=== PATIENT | female | born 1960 | race Caucasian/White ===

== ENCOUNTER 2019-04-24 01:18 | Emergency (ER) | payer BC ==
[2019-04-24] MEDS ORDERED: Sodium Chloride 0.9% 2.5 ML Syringe FLUSH PRN (01:29)
[2019-04-24] MEDS ORDERED: Sodium Chloride 0.9% 10 ML Syringe FLUSH PRN (01:29)
[2019-04-24] MEDS ORDERED: Sodium Chloride 0.9% 1,000 ML IV ONE (01:29)
--- NOTE | 2019-04-24 01:34 | EDM.PDOC ---
ED HPI GENERAL MEDICAL PROBLEM - General Chief Complaint: General Stated Complaint: FLU SYMPTOMS Time Seen by Provider: 04/24/19 01:20 - History of Present Illness INITIAL COMMENTS - FREE TEXT/NARRATIVE: HISTORY AND PHYSICAL: History of present illness: The patient is a 58-year-old female with a history of a cholecystectomy but no other GI or abdominal surgical history who presents with EMS and her with complaints of generalized weakness dry heaves and diarrhea. According to the the symptoms started 2-2-1/2 days ago initially with nausea and some dry heaves and just feeling poorly and then progressed to having watery diarrhea. According to the for the last 2 days she has had multiple episodes of watery diarrhea and the dry heaves but no fevers chills chest pain or shortness of breath. She has not eaten any food in the last 2 days and has only had 2 bottles of water in the last 2 days. She is unsure how many times she urinated today and according to she has not had any falls. She denies head neck or back pain and has no focal extremity weakness or numbness. said he witnessed that she had generalized weakness and needed assistance to get around and seemed very low energy and lethargic is why he called EMS. here does not tell me about the 2-1/2 days of symptoms and says that it all started this morning and she denies any complaints of any pain here and just says that she feels weak all over. When I'm examining her abdomen she does state that she thinks she has some upper abdominal pain but she says that that has not been consistent. According to she has not had a fever at home and he has not noticed any focal weakness or neurosensory changes nor has she complained that. She has also not complained of any head neck or back pain Review of systems: As per history of present illness and below otherwise all systems reviewed and negative. Past medical history: As per history of present illness and as reviewed below otherwise noncontributory. Surgical history: As per history of present illness and as reviewed below otherwise noncontributory. Social history: No reported history of drug or alcohol abuse. Family history: As per history of present illness and as reviewed below otherwise noncontributory. Physical exam: General: Well-developed well-nourished female who is overweight and nontoxic and answering questions but very low energy. Vital signs are noted by me HEENT: Atraumatic, normocephalic, pupils reactive, negative for conjunctival pallor or scleral icterus, mucous membranes tacky, throat clear, neck supple, nontender, trachea midline. Patient's overall appearance is somewhat pale Lungs: Clear to auscultation, breath sounds equal bilaterally, chest nontender. No wheezing stridor or work of breathing Heart: S1S2, regular in rhythm no overt murmurs, negative for clicks, rubs, or JVD. Abdomen: Soft, nondistended, bowel sounds are very hypoactive and there is tympany on percussion of the upper abdomen. There is diffuse upper abdominal tenderness without rebound or guarding. Negative for masses or hepatosplenomegaly. Negative for costovertebral tenderness. Pelvis: Stable nontender. Genitourinary: Deferred. Rectal: Deferred. Extremities: Atraumatic, negative for cords or calf pain. Neurovascular unremarkable. No pedal edema or leg asymmetry Neuro: Awake, alert, oriented patient is very slow with answering and with all movements but is cooperative. Cranial nerves II through XII unremarkable. Cerebellum unremarkable. Motor is a 4/5 throughout with very slow effort but no localizing weakness and sensory unremarkable throughout. Exam nonfocal. Dorsi and plantar flexion is intact 4/5 inclusive of the great toe Diagnostics: EKG 2 CBC CMP amylase lipase lactic acid UA with reflex troponin chest x-ray CT scan of the head abdomen and pelvis ammonia level hepatitis panel PTT Therapeutics: IV O2 monitor IV fluids The booking supervisor in [place] would like heparin per protocol for an STEMI Nitropaste Lopressor and aspirin to be given --the patient was given aspirin per EMS 0232: Case was discussed with Dr. Graf the booking supervisor at [facility] in [place] and I have sent him the EKGs which she has reviewed. He says that at this point because the patient is pain-free the event likely happened a day or 2 ago and we would use medical management and do a heart catheter when we can get her transferred to [place]. He agrees with completing the workup of her abdominal symptoms and if that is negative to give her Nitropaste heparin Lopressor and aspirin. He asked to be notified of any changes and updates on her transfer. He feels that at this point she does not merit flight as he will not be doing an emergent catheter this evening and will likely do it later this morning and feels that EMS transfer is appropriate. I will discuss my findings and these conversations with the and patient. 0353: Case was discussed with Dr. Lea in the ER and he is aware of my concerns with respect to the patient's presenting symptoms and our findings. He is aware of the CT scan and the lab tests. He accepts the patient for transfer. He is also been made aware that we will not be able to get transportation until about 9:00 in the morning. He will pass on this information to the next ED doc in the morning And they will anticipate the patient's arrival 0410: the patient is aware of more labs that need to be drawn including a PTT and ammonia level and a hepatitis panel. She is aware of the CT scan findings with the ascites fluid and that I am not quite sure where this is originating from. She has no longer having any dry heaves nausea or vomiting here in the ED and she has not had a bowel movement or diarrhea since arriving here. Her overall color looks much better and she is feeling improved. She is improved with her interaction with staff and me from arrival as initially she was laying in the bed barely opening her eyes and answering questions very softly and briefly and now she is more chatty interactive and talkative and more alert. She is aware that we cannot get transportation until the morning. She denies any recent history of bleeding in the stools black or tarry stools bleeding or urine nosebleeds, bleeding or easy bruisability. We will continue to monitor and care for this patient and tell transfer in the morning. Critical care time excluding procedures:31min Impression: Non-STEMI AR Vomiting and diarrhea, generalized weakness and malaise; abdominal ascites and omental trending etiology unclear Definitive disposition and diagnosis as appropriate pending reevaluation and review of above. - Related Data Allergies Allergy/AdvReac Type Severity Reaction Status Date / Time latex Allergy Hives Verified 04/24/19 01:27 Home Meds: Home Meds . [No Known Home Meds] 04/24/19 [History] ED ROS GENERAL - Review of Systems Review Of Systems: ROS reveals no pertinent complaints other than HPI. ED EXAM, GENERAL - Physical Exam Exam: See Below (See dictation) Course - Vital Signs Last Recorded V/S: Last Vital Signs Temp 35.8 C 04/24/19 01:18 Pulse 97 04/24/19 01:36 Resp 18 04/24/19 01:36 BP 154/96 H 04/24/19 01:36 Pulse Ox 96 04/24/19 01:36 - Orders/Labs/Meds Orders: Active Orders 24 hr Category Date Time Status Cardiac Monitoring [RC] . DIRECTED Care 04/24/19 01:28 Active Communication Order [RC] STAT Care 04/24/19 01:34 Active EKG Documentation Completion [RC] STAT Care 04/24/19 01:28 Active EKG Documentation Completion [RC] STAT Care 04/24/19 02:16 Active Oxygen Therapy, ED [RC] ASDIRECTED Care 04/24/19 01:28 Active Pulse Oximetry [RC] ASDIRECTED Care 04/24/19 01:28 Active AMMONIA VENOUS [CHEM] Stat Lab 04/24/19 04:02 Ordered HEPATITIS PANEL (4) [REF] Stat Lab 04/24/19 04:03 Ordered PTT,PARTIAL THROMBOPLSTIN TIME [COAG] Stat Lab 04/24/19 04:13 Ordered Heparin Sod,Pork In 0.45% Nacl [Heparin-1/2Ns 25,000 Med 04/24/19 04:15 Ordered Units/500] 25,000 unit in 500 ml IV TITRATE Heparin Sodium Med 04/24/19 04:10 Once 4,600 units IVPUSH ONETIME ONE Metoprolol Tartrate [Lopressor] Med 04/24/19 04:13 Once 5 mg IVPUSH ONETIME ONE Nitroglycerin [Nitro-Bid 2%] Med 04/24/19 04:13 Once 1 gm TOP ONETIME ONE Sodium Chloride 0.9% [Normal Saline] 1,000 ml Med 04/24/19 03:15 Active IV ASDIRECTED Sodium Chloride 0.9% [Saline Flush] Med 04/24/19 01:29 Active 10 ml FLUSH ASDIRECTED PRN Sodium Chloride 0.9% [Saline Flush] Med 04/24/19 01:29 Active 2.5 ml FLUSH ASDIRECTED PRN Saline Lock Insert [OM.PC] Stat Oth 04/24/19 01:28 Ordered Medication Orders Heparin Sodium (Porcine) (Heparin Sodium) 4,600 units IVPUSH ONETIME ONE Stop: 04/24/19 04:11 Sodium Chloride (Normal Saline) 1,000 mls @ 125 mls/hr IV ASDIRECTED SARAH Last Admin: 04/24/19 03:05 Dose: 125 mls/hr Heparin Sodium/Sodium Chloride (Heparin-1/2ns 25,000 Units/500) 25,000 unit in 500 mls @ 18.507 mls/hr IV TITRATE SARAH; Protocol Metoprolol Tartrate (Lopressor) 5 mg IVPUSH ONETIME ONE Stop: 04/24/19 04:14 Sodium Chloride (Saline Flush) 10 ml FLUSH ASDIRECTED PRN PRN Reason: Keep Vein Open Sodium Chloride (Saline Flush) 2.5 ml FLUSH ASDIRECTED PRN PRN Reason: Keep Vein Open Labs: Laboratory Tests 04/24/19 04/24/19 04/24/19 Range/Units 01:19 01:19 01:19 WBC 11.70 H (4.0-11.0) K/uL RBC 5.43 (4.30-5.90) M/uL Hgb 14.7 (12.0-16.0) g/dL Hct 44.0 (36.0-46.0) % MCV 81.0 (80.0-98.0) fL MCH 27.1 (27.0-32.0) pg MCHC 33.4 (31.0-37.0) g/dL RDW Std Deviation 40.4 (28.0-62.0) fl RDW Coeff of Sindy 14 (11.0-15.0) % Plt Count 168 (150-400) K/uL MPV 9.90 (7.40-12.00) fL Neut % (Auto) 79.7 (48.0-80.0) % Lymph % (Auto) 7.9 L (16.0-40.0) % [place] % (Auto) 12.1 (0.0-15.0) % Eos % (Auto) 0.1 (0.0-7.0) % Baso % (Auto) 0.2 (0.0-1.5) % Neut # (Auto) 9.3 H (1.4-5.7) K/uL Lymph # (Auto) 0.9 (0.6-2.4) K/uL [place] # (Auto) 1.4 H (0.0-0.8) K/uL Eos # (Auto) 0.0 (0.0-0.7) K/uL Baso # (Auto) 0.0 (0.0-0.1) K/uL Nucleated RBC % 0.0 /100WBC Nucleated RBCs # 0 K/uL Lactate 1.4 (0.20-2.00) mmol/L Sodium 138 (136-145) mmol/L Potassium 3.5 (3.5-5.1) mmol/L Chloride 101 (98-107) mmol/L Carbon Dioxide 22.9 (21.0-32.0) mmol/L BUN 10 (7.0-18.0) mg/dL Creatinine 0.8 (0.6-1.0) mg/dL Est Cr Clr Drug Dosing TNP Estimated GFR (MDRD) > 60.0 ml/min Glucose 179 H (74-106) mg/dL Calcium 8.8 (8.5-10.1) mg/dL Total Bilirubin 1.5 H (0.2-1.0) mg/dL AST 112 H (15-37) IU/L ALT 50 (14-63) IU/L Alkaline Phosphatase 75 (46-116) U/L Troponin I 21.631 H* (0.000-0.056) ng/mL Total Protein 7.5 (6.4-8.2) g/dL Albumin 3.1 L (3.4-5.0) g/dL Globulin 4.4 H (2.6-4.0) g/dL Albumin/Globulin Ratio 0.7 L (0.9-1.6) Amylase 29 (25-115) U/L Lipase 200 (73-393) U/L Urine Color Urine Appearance Urine pH (5.0-8.0) Ur Specific [place] (1.001-1.035) Urine Protein (NEGATIVE) mg/dL Urine Glucose (UA) (NEGATIVE) mg/dL Urine Ketones (NEGATIVE) mg/dL Urine Occult Blood (NEGATIVE) Urine Nitrite (NEGATIVE) Urine Bilirubin (NEGATIVE) Urine Urobilinogen (<2.0) EU/dL Ur Leukocyte Esterase (NEGATIVE) Urine RBC (0-2/HPF) Urine WBC (0-5/HPF) Ur Epithelial Cells (NONE-FEW) Urine Bacteria (NEGATIVE) Urine Mucus (NONE-MOD) 04/24/19 Range/Units 03:10 WBC (4.0-11.0) K/uL RBC (4.30-5.90) M/uL Hgb (12.0-16.0) g/dL Hct (36.0-46.0) % MCV (80.0-98.0) fL MCH (27.0-32.0) pg MCHC (31.0-37.0) g/dL RDW Std Deviation (28.0-62.0) fl RDW Coeff of Sindy (11.0-15.0) % Plt Count (150-400) K/uL MPV (7.40-12.00) fL Neut % (Auto) (48.0-80.0) % Lymph % (Auto) (16.0-40.0) % [place] % (Auto) (0.0-15.0) % Eos % (Auto) (0.0-7.0) % Baso % (Auto) (0.0-1.5) % Neut # (Auto) (1.4-5.7) K/uL Lymph # (Auto) (0.6-2.4) K/uL [place] # (Auto) (0.0-0.8) K/uL Eos # (Auto) (0.0-0.7) K/uL Baso # (Auto) (0.0-0.1) K/uL Nucleated RBC % /100WBC Nucleated RBCs # K/uL Lactate (0.20-2.00) mmol/L Sodium (136-145) mmol/L Potassium (3.5-5.1) mmol/L Chloride (98-107) mmol/L Carbon Dioxide (21.0-32.0) mmol/L BUN (7.0-18.0) mg/dL Creatinine (0.6-1.0) mg/dL Est Cr Clr Drug Dosing Estimated GFR (MDRD) ml/min Glucose (74-106) mg/dL Calcium (8.5-10.1) mg/dL Total Bilirubin (0.2-1.0) mg/dL AST (15-37) IU/L ALT (14-63) IU/L Alkaline Phosphatase (46-116) U/L Troponin I (0.000-0.056) ng/mL Total Protein (6.4-8.2) g/dL Albumin (3.4-5.0) g/dL Globulin (2.6-4.0) g/dL Albumin/Globulin Ratio (0.9-1.6) Amylase (25-115) U/L Lipase (73-393) U/L Urine Color YELLOW Urine Appearance CLEAR Urine pH 6.5 (5.0-8.0) Ur Specific [place] <= 1.005 (1.001-1.035) Urine Protein TRACE H (NEGATIVE) mg/dL Urine Glucose (UA) NEGATIVE (NEGATIVE) mg/dL Urine Ketones 15 H (NEGATIVE) mg/dL Urine Occult Blood TRACE-INTACT H (NEGATIVE) Urine Nitrite NEGATIVE (NEGATIVE) Urine Bilirubin NEGATIVE (NEGATIVE) Urine Urobilinogen >=8.0 H (<2.0) EU/dL Ur Leukocyte Esterase NEGATIVE (NEGATIVE) Urine RBC NONE SEEN (0-2/HPF) Urine WBC 0-1 (0-5/HPF) Ur Epithelial Cells OCCASIONAL (NONE-FEW) Urine Bacteria FEW (NEGATIVE) Urine Mucus LIGHT (NONE-MOD) Meds: Medications Generic Name Dose Route Start Last Admin Trade Name Freq PRN Reason Stop Dose Admin Heparin Sodium (Porcine) 4,600 units 04/24/19 04:10 Heparin Sodium IVPUSH 04/24/19 04:11 ONETIME ONE Sodium Chloride 1,000 mls @ 125 mls/hr 04/24/19 03:15 04/24/19 03:05 Normal Saline IV 125 mls/hr ASDIRECTED SARAH Administration Heparin Sodium/Sodium Chloride 25,000 unit in 500 mls @ 18.507 mls/hr 04:15 Heparin-1/2ns 25,000 Units/500 IV TITRATE SARAH Protocol 12 UNITS/KG/HR Metoprolol Tartrate 5 mg 04/24/19 04:13 Lopressor IVPUSH 04/24/19 04:14 ONETIME ONE Sodium Chloride 10 ml 04/24/19 01:29 Saline Flush FLUSH ASDIRECTED PRN Keep Vein Open Sodium Chloride 2.5 ml 04/24/19 01:29 Saline Flush FLUSH ASDIRECTED PRN Keep Vein Open Discontinued Medications Generic Name Dose Route Start Last Admin Trade Name Freq PRN Reason Stop Dose Admin Sodium Chloride 1,000 mls @ 999 mls/hr 04/24/19 01:29 04/24/19 01:36 Normal Saline IV 04/24/19 02:29 999 mls/hr STAT ONE Administration Iopamidol 100 ml 04/24/19 02:54 04/24/19 02:54 Isovue Multipack-370 (76%) IVPUSH 04/24/19 02:55 100 ml ONETIME ONE Administration Departure - Departure Time of Disposition: 04:18 Disposition: DC/Tfer to Acute Hospital 02 Condition: Fair Clinical Impression: NSTEMI (non-ST elevated myocardial infarction), Vomiting and diarrhea Ascites Qualifiers: Ascites type: other type Qualified Code(s): R18.8 - Other ascites - Discharge Information Referrals: PCP,None [Primary Care Provider] - Forms: ED Department Discharge - My Orders Last 24 Hours: My Active Orders 04/24/19 01:28 Cardiac Monitoring [RC] . DIRECTED EKG Documentation Completion [RC] STAT Oxygen Therapy, ED [RC] ASDIRECTED Pulse Oximetry [RC] ASDIRECTED Saline Lock Insert [OM.PC] Stat 04/24/19 01:29 Sodium Chloride 0.9% [Saline Flush] 10 ml FLUSH ASDIRECTED PRN Sodium Chloride 0.9% [Saline Flush] 2.5 ml FLUSH ASDIRECTED PRN 04/24/19 01:34 Communication Order [RC] STAT 04/24/19 02:16 EKG Documentation Completion [RC] STAT 04/24/19 03:15 Sodium Chloride 0.9% [Normal Saline] 1,000 ml IV ASDIRECTED 04/24/19 04:02 AMMONIA VENOUS [CHEM] Stat 04/24/19 04:03 HEPATITIS PANEL (4) [REF] Stat 04/24/19 04:10 Heparin Sodium 4,600 units IVPUSH ONETIME ONE 04/24/19 04:13 PTT,PARTIAL THROMBOPLSTIN TIME [COAG] Stat Metoprolol Tartrate [Lopressor] 5 mg IVPUSH ONETIME ONE Nitroglycerin [Nitro-Bid 2%] 1 gm TOP ONETIME ONE 04/24/19 04:15 Heparin Sod,Pork In 0.45% Nacl [Heparin-1/2Ns 25,000 Units/500] 25,000 unit in 500 ml IV TITRATE - Assessment/Plan Last 24 Hours: My Active Orders 04/24/19 01:28 Cardiac Monitoring [RC] . DIRECTED EKG Documentation Completion [RC] STAT Oxygen Therapy, ED [RC] ASDIRECTED Pulse Oximetry [RC] ASDIRECTED Saline Lock Insert [OM.PC] Stat 04/24/19 01:29 Sodium Chloride 0.9% [Saline Flush] 10 ml FLUSH ASDIRECTED PRN Sodium Chloride 0.9% [Saline Flush] 2.5 ml FLUSH ASDIRECTED PRN 04/24/19 01:34 Communication Order [RC] STAT 04/24/19 02:16 EKG Documentation Completion [RC] STAT 04/24/19 03:15 Sodium Chloride 0.9% [Normal Saline] 1,000 ml IV ASDIRECTED 04/24/19 04:02 AMMONIA VENOUS [CHEM] Stat 04/24/19 04:03 HEPATITIS PANEL (4) [REF] Stat 04/24/19 04:10 Heparin Sodium 4,600 units IVPUSH ONETIME ONE 04/24/19 04:13 PTT,PARTIAL THROMBOPLSTIN TIME [COAG] Stat Metoprolol Tartrate [Lopressor] 5 mg IVPUSH ONETIME ONE Nitroglycerin [Nitro-Bid 2%] 1 gm TOP ONETIME ONE 04/24/19 04:15 Heparin Sod,Pork In 0.45% Nacl [Heparin-1/2Ns 25,000 Units/500] 25,000 unit in 500 ml IV TITRATE
--- NOTE | 2019-04-24 01:56 | CR ---
Indication: Dyspnea, chest pain, weakness Technique: Chest 1 view Comparison: None Findings/Impression: Prominent cardiac size. Normal pulmonary vasculature. No pneumothorax, effusion, or focal infiltrate. No acute osseous abnormality. Dictated by Josefina Pitts MD @ Apr 24 2019 1:52AM Signed by Dr. Josefina Pitts @ Apr 24 2019 1:53AM
[2019-04-24 02:01] LABS: BLOOD UREA NITROGEN,BUN 10 mg/dL (7.0-18.0); CARBON DIOXIDE,CO2 22.9 mmol/L (21.0-32.0); CHLORIDE,CL 101 mmol/L (98-107); GLUCOSE RANDOM 179 mg/dL (74-106); LIPASE 200 U/L (73-393); POTASSIUM,K 3.5 mmol/L (3.5-5.1); SODIUM,NA 138 mmol/L (136-145)
[2019-04-24] MEDS ORDERED: Iopamidol 755 MG/ML 500 ML Multipack Bottle IVPUSH ONE (02:54)
--- NOTE | 2019-04-24 03:07 | CT ---
INDICATION: Weakness, change in mental status TECHNIQUE: CT head without contrast. COMPARISON: None FINDINGS: CSF spaces: Within normal limits for age. Brain parenchyma: The freeman-white differentiation is normal. No sign of mass, hemorrhage, or midline shift. Skull base and calvarium: The visualized paranasal sinuses and mastoid air cells demonstrate no acute or significant findings. The visualized orbits are grossly unremarkable. No skull fractures. IMPRESSION: Unremarkable noncontrast head CT. Dictated by Nimesh Salas MD @ 04/24/2019 3:05:40 AM Please note that all CT scans at this facility use dose modulation, iterative reconstruction, and/or weight-based dosing when appropriate to reduce radiation dose to as low as reasonably achievable. Dictated by: Nimesh Salas MD @ 04/24/2019 03:05:48 (Electronically Signed)
[2019-04-24] MEDS ORDERED: Sodium Chloride 0.9% 1,000 ML IV SCH ×2 (03:15→06:00)
--- NOTE | 2019-04-24 03:29 | CT ---
INDICATION: Weakness TECHNIQUE: CT abdomen and pelvis acquired with IV contrast. 100 cc Isovue 370 COMPARISON: None FINDINGS: Lower chest: Small bilateral pleural effusions Liver: Multiple hepatic cyst. Spleen: Unremarkable. Pancreas: Unremarkable. Gallbladder and bile ducts: Cholecystectomy with dilated common bile duct most likely related to reservoir effect. Kidneys: Unremarkable. Adrenal glands: Unremarkable. GI tract: Unremarkable. Appendix is normal. Vascular structures: Unremarkable. Lymph nodes: Unremarkable. Miscellaneous: Omental fat stranding noted. No free air. Ascites. Pelvic Organs: Heterogeneous myometrium. Bones: Unremarkable for age. IMPRESSION: Moderate amount of ascites. Possible omental fat stranding. Heterogeneous myometrium. The ovaries are not definitively visualized. Small bilateral pleural effusions. Cholecystectomy with dilated common bile duct most likely related to reservoir effect. Please note that all CT scans at this facility use dose modulation, iterative reconstruction, and/or weight-based dosing when appropriate to reduce radiation dose to as low as reasonably achievable. Dictated by Nimesh Salas MD @ Apr 24 2019 3:27AM Signed by Dr. Nimesh Salas @ Apr 24 2019 3:27AM
[2019-04-24] MEDS ORDERED: Heparin Sodium 5,000 Units/ML Vial IVPUSH ONE (04:10)
[2019-04-24] MEDS ORDERED: Nitroglycerin 2% Oint 1 GM UD Packet TOP ONE (04:13)
[2019-04-24] MEDS ORDERED: Metoprolol Tartrate 5 MG/5 ML SDV IVPUSH ONE (04:13)
[2019-04-24] MEDS ORDERED: Heparin Sod,Pork In 0.45% Nacl 25,000 UNIT/500 ML IV.SOLN IV SCH (04:15)
== END 2019-04-24 10:00 ==
LOC: MW.ED 01:18
DX: I21.4 Non-ST elevation (NSTEMI) myocardial infarction (principal); R11.10 Vomiting, unspecified; R19.7 Diarrhea, unspecified; R18.8 Other ascites; Z91.040 Latex allergy status
CPT/HCPCS: 36415; 70450; 71045; 74177; 80053; 80074; 81001; 82140; 82150; 82962; 83605; 83690; 84484; 85025; 85610; 85730; 93005; 96361; 96365; 96366; 96375; 99285; A9270; J1644; J3490; J7040; Q9967